=== PATIENT | male | born 1935 | race Caucasian/White ===

== ENCOUNTER 2019-04-25 00:02 | Observation (INO) ==
[2019-04-25 01:10] LABS: Basophils % 0.4 %; Eosinophils # 0.1 K/mcL (0.0-0.6); Eosinophils % 1.4 %; Hemoglobin 13.8 g/dL (12.9-16.9); Immature Granulocytes % 0.3 % (0-4); Lymphocytes # 1.5 K/mcL (0.6-4.6); Lymphocytes % 19.9 %; Mean Corpuscular HGB Conc 33.7 g/dL (31.6-35.5); Mean Corpuscular Hemoglobin 30.4 pg (28.0-33.3); Mean Corpuscular Volume 90.3 fL (83.0-100.0); Mean Platelet Volume 10.8 fL (9.4-12.4); Monocytes # 0.7 K/mcL (0.0-1.3); Monocytes % 10.2 %; Neutrophils # 4.9 K/mcL (1.6-8.9); Platelet Count 160 K/mcL (140-400); Red Blood Count 4.54 M/mcL (4.19-5.50); Red Cell Distribution Width 12.8 % (11.5-14.5); Segmented Neutrophils % 67.8 %; White Blood Count 7.3 K/mcL (4.3-11.1)
[2019-04-25 01:17] LABS: INR 1.5; Prothrombin Time 17.2 Seconds (9.4-12.1)
[2019-04-25 01:20] LABS: Activated Partial Thrombo Time 41.4 Seconds (26.0-36.0)
[2019-04-25 01:21] LABS: BUN/Creatinine Ratio 21 (6-26); Blood Urea Nitrogen 25 mg/dL (8-23); Calcium 9.7 mg/dL (8.6-10.3); Carbon Dioxide 25 mEq/L (23-29); Chloride 108 mEq/L (98-107); Glucose 106 mg/dL (70-105); Osmolality,Calculated 299 (280-300); Potassium 4.1 mEq/L (3.5-5.1); Sodium 142 mEq/L (136-145); eGFR For African Americans > 60 (> 60); eGFR For Non-African Americans 60 (> 60)
[2019-04-25 01:22] LABS: Troponin I < 0.03 ng/mL (< 0.04)
--- NOTE | 2019-04-25 01:59 | Emergency Department Note ---
Disposition Clinical Impression: Hx of CABG, Acute chest pain Coronary artery disease Qualifiers: Coronary Disease-Associated Artery/Lesion type: unspecified vessel or lesion type [place] vs. transplanted heart: [place] heart Associated angina: with unspecified angina Qualified Code(s): I25.119 - Atherosclerotic heart disease of [place] coronary artery with unspecified angina pectoris Disposition: Admitted As Inpatient Condition: Good Time of Disposition: 02:00 Chest Pain HPI - General Chief Complaint: ED Arrhythmia/Palpitations Stated Complaint: chest pain Time Seen by Provider: 04/25/19 00:51 Source: patient Mode of arrival: private vehicle Limitations: no limitations Vital Signs Reviewed: Yes Nursing Notes Reviewed: Yes - History of Present Illness HPI Narrative: 84-year-old male presents emergency department for evaluation of "just not feeling right". Patient states that 2130 was laying down for bed he just did not feel right, he had a feeling in his chest that he is unable to describe, at 2330 he figured he should probably come and be seen as this feeling has continued. Patient states this feeling was that a chest pain or pressure, he states he just "did not feel right". He states through the evening his blood pressure was elevated with a systolic in the 180s and diastolic in the 90s, heart rate in the 40s to 50s. He states normally his heart rate is 50s to 60s and he very rarely has a blood pressure higher than 1:30 systolic. Patient very active. 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 Patient states "I feel fine no, I probably should not have came". No recent illness, fever, chills, shortness of breath, coughing, palpitations or arrhythmias, no edema, no shortness of breath with exertion, no abdominal pain, nausea, vomiting, constipation, diarrhea. History includes PEs, on Xarelto, [place] with stents last 1 2006 Pt complaint: other Onset (ago): hour(s) Time: 21:30 Duration: now resolved Onset: during rest Pain Location: substernal Severity: none Quality: other Worsens with: nothing Context: history of DVT/PE Treatments prior to arrival chest pain: none - Related Data Home Medications Medication Instructions Recorded Confirmed Atorvastatin [Lipitor] 80 mg PO HS 08/24/15 04/25/19 Calcium Carbonate/Vitamin D3 3 each PO DAILY 08/24/15 04/25/19 [Calcium 600 + D Tablet] Lisinopril [Zestril] 20 mg PO DAILY 08/24/15 04/25/19 Pantoprazole Sodium 40 mg PO DAILY 08/24/15 04/25/19 Rivaroxaban [Xarelto] 10 mg PO DAILY 08/24/15 04/25/19 Tamsulosin [Flomax] 0.4 mg PO DAILY 08/24/15 04/25/19 Previous Rx's Medication Instructions Recorded Loratadine [Claritin] 10 mg PO DAILY #30 tablet 03/23/16 Allergies Allergy/AdvReac Type Severity Reaction Status Date / Time esomeprazole [From Nexium] AdvReac Joint Pain Verified 04/25/19 01:04 lactose AdvReac Diarrhea Verified 04/25/19 01:04 quinine AdvReac Muscle Pain Verified 04/25/19 01:04 All systems ED: reviewed and negative except as stated. Review of Systems: As Per HPI Chest Pain PMH - Past Medical History Medical history: Reports: hypertension, myocardial infarction Surgical history: Reports: other Psychiatric history: Reports: no psych history - Social History Smoking Status: Never smoker Alcohol use: Reports: none Drug use: Reports: none Physical Exam - General Limitations: no limitations General appearance: alert, in no apparent distress - Head Head exam: atraumatic, normocephalic, normal inspection - Eye Eye exam: Present: normal appearance - ENT ENT exam: mucous membranes moist - Neck Neck exam: Present: normal inspection, full ROM, trachea midline - Chest Chest inspection: Present: normal inspection, symmetric chest wall rise - Respiratory Respiratory exam: Present: normal lung sounds bilaterally - Cardiovascular Cardiovascular exam: Present: regular rate, normal rhythm, normal heart sounds - Abdominal Exam Abdominal exam: Present: soft, Non-Tender, normal bowel sounds - Neurological Exam Neurological exam: Present: alert, oriented X3 - Psychiatric Psychiatric exam: Present: normal affect, normal mood - Skin Skin exam: Present: warm, dry, intact, normal color Course Course Narrative: Well-developed male in no acute distress. Respirations are easy and even. Patient appears considerably younger than chronological age. He is afebrile, normotensive, non-tachycardic. Physical examination is otherwise unremarkable. EKG completed upon arrival reveals a sinus rhythm with a ventricular rate of 59 beats per minute, CT interval 236 ms, QTC 459 ms. No evidence of ischemic morphology or change from previous that was completed on 03/23/16. Concern for cardiac etiology, I am unconcerned for pulmonary embolus was patient is on xarelto, he is medication compliant, I do not appreciate any other pulmonary etiology. Patient is generally healthy however he does have a cardiac history. Labs returned unremarkable, troponin less than 0.03, chest x-ray is negative. However given age, suspicion, history HEART score is 5. I did not feel patient would benefit from admission to the hospital for ACS rule out given the vague symptomology of just not feeling right in his chest. The entire time is pending the emergency department he has not had any symptoms. He has remained in good spirits. Patient is agreeable to plan of care of inpatient status. - Reevaluation(s) Reevaluation #1: Spoke with hospitalist Dr. Nichols, agree with the patient for inpatient status for ACS rule out. Patient is agreeable to this plan of care still. We will transition at this time. Time: 02:20 Vital Signs Temperature 98.5 F 04/25/19 00:07 Pulse Rate 61 04/25/19 00:07 Respiratory Rate 16 04/25/19 00:07 Blood Pressure 156/75 04/25/19 00:07 O2 Sat by Pulse Oximetry 97 04/25/19 00:07 Temperature 98.5 F 04/25/19 00:07 Pulse Rate 49 04/25/19 02:24 Respiratory Rate 18 04/25/19 02:24 Blood Pressure 151/77 04/25/19 02:24 O2 Sat by Pulse Oximetry 98 04/25/19 02:24 Oxygen Delivery Oxygen Delivery Room Air Chest Pain - Lab Data Result diagrams: 04/25/19 00:13 04/25/19 00:13 Lab Results 04/25/19 04/25/19 04/25/19 Range/Units 00:13 00:13 00:13 WBC 7.3 (4.3-11.1) K/mcL RBC 4.54 (4.19-5.50) M/mcL Hgb 13.8 (12.9-16.9) g/dL Hct 41.0 (37.5-50.1) % MCV 90.3 (83.0-100.0) fL MCH 30.4 (28.0-33.3) pg MCHC 33.7 (31.6-35.5) g/dL RDW 12.8 (11.5-14.5) % Plt Count 160 (140-400) K/mcL MPV 10.8 (9.4-12.4) fL Immature Gran % 0.3 (0-4) % Seg Neutrophils % 67.8 % Lymphocytes % 19.9 % Monocytes % 10.2 % Eosinophils % 1.4 % Basophils % 0.4 % Neutrophils # 4.9 (1.6-8.9) K/mcL Lymphocytes # 1.5 (0.6-4.6) K/mcL Monocytes # 0.7 (0.0-1.3) K/mcL Eosinophils # 0.1 (0.0-0.6) K/mcL Basophils # 0.0 (0.0-0.2) K/mcL PT 17.2 H (9.4-12.1) Seconds INR 1.5 APTT 41.4 H (26.0-36.0) Seconds Sodium 142 (136-145) mEq/L Potassium 4.1 (3.5-5.1) mEq/L Chloride 108 H (98-107) mEq/L Carbon Dioxide 25 (23-29) mEq/L BUN 25 H (8-23) mg/dL Creatinine 1.17 (0.70-1.30) mg/dL Est GFR ( Amer) > 60 (> 60) Est GFR (Non-Af Amer) 60 (> 60) BUN/Creatinine Ratio 21 (6-26) Glucose 106 H (70-105) mg/dL Calculated Osmolality 299 (280-300) Calcium 9.7 (8.6-10.3) mg/dL Troponin I < 0.03 (< 0.04) ng/mL Heart Score - Score History: Moderately Suspicious EKG: Normal Age: Greater than 65 Risk Factors: Equal/Greater than 3 risk factor or history of atherosclerotic disease Troponin: Less than normal limit HEART Score Total: 5 Attestation Statement - Attestation Attestation: Dr. Velazco note: Patient seen in conjunction with LAURA Melendez . Please see her charting for complete documentation. Spent [id number] time with the patient and agree with patient's treatment and disposition. Patient had chest pain last night at rest described parasternal assure was nonradiating lasted a handful minutes and went away. Had vague weakness today during the day and then tonight around 11:30 while in bed after 2 hours had some parasternal chest pain which was again nonradiating. History of known coronary disease with stent placement approximately 10 years ago. No recent stress test or heart catheterization. EKG is unremarkable without injury pattern. Sinus bradycardia noted and was unremarkable. Initial troponin unremarkable.
[2019-04-25] MEDS ORDERED: Aspirin 325 MG TABLET PO ONE (02:05)
[2019-04-25] MEDS ORDERED: Naloxone 0.4 MG/ML INJ IVP PRN (05:53)
--- NOTE | 2019-04-25 06:12 | Internal Med History&Physical ---
Date of Encounter: 04/25/19 Time of Encounter: 05:40 Internal Medicine - H&P: HPI Chief complaint: Chest discomfort Admitted From: Emergency Dept Plans for Post Hospital Care: Home History of present illness: Mr. Oakley is a 84 year old male Patient presented to the ER after he just did not feel good today. He has a home blood pressure cuff, and checked his blood pressure and it was elevated. He says that he is lactose intolerant, and ate 3 cheesy meals in the last 48 hours. He thinks that may have contributed to his symptoms. 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 The sensation that he had did worry him, so he came to the hospital for further evaluation. In the ER patient's initial vital signs were within normal limits. Patient has what appears to be a low resting heart rate, ranging from high 40's to low 60's. CBC was within normal limits BMP was notable only for a slightly elevated glucose of 106. Initial troponin was undetectable INR 1.5. Patient takes xarelto for history of PEs. EKG showed sinus rhythm rate of 59, no ischemic changes. The PA interval was prolonged at 236, which appears to be consistent with previous EKG. QTc was 459. The ER gave the patient 325mg of aspirin, and admitted the patient to the hospital for further observation. Upon my evaluation patient is resting comfortably in the hospital bed in no acute distress. He denies chest pain, abdominal pain, nausea, vomiting, diarrhea and constipation. He states that when he eats dairy food he will sometimes get sensations like this. He feels that he may have "jumped the gun" on coming in to be checked out, but is glad to have his heart evaluated. He is a full code. Past Med Surg Social Fam HX - Past Medical History Medical history: hypertension, myocardial infarction Additional medical history: DVT in Left leg Psychiatric history: no psych history - Past Surgical History Surgical History: coronary bypass (CABG), other Additional surgical history: two heart stents - Social History Smoking Status: Never smoker Smokeless Tobacco Status: No Alcohol use: none Drug use: none - Family History Mother Living Status: Hx Family Cardiac Disorders: No Hx Family Respiratory Disorders: No Father Living Status: Hx Family Cardiac Disorders: No Hx Family Respiratory Disorders: No Internal Medicine - H&P: Meds Atorvastatin [Lipitor] 80 mg PO HS 08/24/15 [History] Calcium Carbonate/Vitamin D3 [Calcium 600 + D Tablet] 3 each PO DAILY 08/24/15 [ History] Lisinopril [Zestril] 20 mg PO DAILY 08/24/15 [History] Pantoprazole Sodium 40 mg PO DAILY 08/24/15 [History] Rivaroxaban [Xarelto] 10 mg PO DAILY 08/24/15 [History] Tamsulosin [Flomax] 0.4 mg PO DAILY 08/24/15 [History] Loratadine [Claritin] 10 mg PO DAILY #30 tablet 03/23/16 [Rx] Allergy/AdvReac Type Severity Reaction Status Date / Time esomeprazole [From Nexium] AdvReac Joint Pain Verified 04/25/19 01:04 lactose AdvReac Diarrhea Verified 04/25/19 01:04 quinine AdvReac Muscle Pain Verified 04/25/19 01:04 All Systems PM: A 10-system review of systems was performed and is negative for pertinent findings except as documented above in the HPI. - Constitutional Vitals: Temp Pulse Resp BP Pulse Ox 98 F 49 14 144/77 98 04/25/19 04:15 04/25/19 04:15 04/25/19 04:15 04/25/19 04:15 04/25/19 04:45 General appearance: Present: cooperative, A&O X 3, pleasant, no acute distress, answers questions appropriately Exam: - - Head Head exam: Present: normal inspection - Eye Eye exam: Present: EOMI, normal appearance - Respiratory Respiratory exam: Present: CTAB. Absent: rales, respiratory distress, rhonchi, wheezes - Cardiovascular Cardiovascular exam: Present: RRR. Absent: diastolic murmur, systolic murmur - GI/Abdominal GI/Abdominal exam: Present: normal bowel sounds, soft. Absent: tenderness - Extremities Exam Extremities exam: Present: warm, radial pulses palpable and symmetrical. Absent: calf tenderness, pedal edema, tenderness - Neurological Exam Neurological exam: Present: no focal deficits, strengths equal and symetr throughout. Absent: motor sensory deficit, facial droop, speech deficit - Skin Skin exam: Present: dry, normal color, warm Internal Med - H&P Results - Labs CBC & Chem 7: 04/25/19 06:17 04/25/19 00:13 Labs: Short CBC 04/25/19 Range/Units 00:13 WBC 7.3 (4.3-11.1) K/mcL Hgb 13.8 (12.9-16.9) g/dL Hct 41.0 (37.5-50.1) % Plt Count 160 (140-400) K/mcL Neutrophils # 4.9 (1.6-8.9) K/mcL BMP 04/25/19 00:13 Sodium 142 Potassium 4.1 Chloride 108 H Carbon Dioxide 25 BUN 25 H Creatinine 1.17 Glucose 106 H Calcium 9.7 Cardiac Enzymes 04/25/19 Range/Units 00:13 Troponin I < 0.03 (< 0.04) ng/mL - Impressions ITS Impressions Chest X-Ray 04/25/19 00:52 IMPRESSION: No acute cardiopulmonary findings. D/ / Hal Mak / Hal Mak Interpreting Provider: Hal Mak - Assessment and Plan (1) Chest discomfort Current Visit: Yes Status: Acute Assessment and plan: Patient states that he does not have chest pain, but did have chest discomfort. This has now resolved. He has no complaints at this time. 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 Follows up with cardiology regularly. Next visit scheduled for 05/04/19. (3) Chronic anticoagulation Current Visit: No Status: Chronic Assessment and plan: Continue home xarelto. Has history of PEs. (4) DVT prophylaxis Current Visit: Yes Status: Acute Assessment and plan: Continue home xarelto - Time Spent With Patient Total time spent is greater than 50% in coordination of care (as documented) at patient's floor/unit and/or counseling patient: Greater than 35 minutes
[2019-04-25 06:28] LABS: Hematocrit 37.5 % (37.5-50.1); Hemoglobin 12.5 g/dL (12.9-16.9); Mean Corpuscular HGB Conc 33.3 g/dL (31.6-35.5); Mean Corpuscular Hemoglobin 30.8 pg (28.0-33.3); Mean Corpuscular Volume 92.4 fL (83.0-100.0); Mean Platelet Volume 10.1 fL (9.4-12.4); Platelet Count 139 K/mcL (140-400); Red Blood Count 4.06 M/mcL (4.19-5.50); Red Cell Distribution Width 12.8 % (11.5-14.5); White Blood Count 5.8 K/mcL (4.3-11.1)
[2019-04-25 06:49] LABS: BUN/Creatinine Ratio 22 (6-26); Blood Urea Nitrogen 24 mg/dL (8-23); Calcium 9.1 mg/dL (8.6-10.3); Carbon Dioxide 28 mEq/L (23-29); Chloride 108 mEq/L (98-107); Glucose 97 mg/dL (70-105); Osmolality,Calculated 300 (280-300); Potassium 4.1 mEq/L (3.5-5.1); Sodium 143 mEq/L (136-145); eGFR For African Americans > 60 (> 60); eGFR For Non-African Americans > 60 (> 60)
[2019-04-25 07:36] VITALS: BP 124/72
[2019-04-25] MEDS ORDERED: *HR* Rivaroxaban 10 MG TABLET PO SCH ×2 (09:00→17:00)
[2019-04-25] MEDS ORDERED: Loratadine 10 MG TABLET PO SCH ×2 (09:15→17:00)
[2019-04-25] MEDS ORDERED: Lisinopril 20 MG TABLET PO SCH ×2 (09:15→17:00)
[2019-04-25] MEDS ORDERED: Regadenoson 0.4 MG/5 ML SYRINGE IVP ONE (10:44)
--- NOTE | 2019-04-25 14:29 | Discharge Summary ---
- NOTES TO OUTPATIENT PROVIDER Notes to Outpatient Provider: f/u with PCP in one week. 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 Orders not resulted at time of discharge: Pending orders 04/25/19 00:52 ECG 12 lead ECG [ECG] Stat 04/25/19 09:02 NM bhavik perf SPECT multi [NM] Routine Date of Encounter: 04/25/19 Time of Encounter: 14:00 - Discharge Diagnosis (1) Chest discomfort Priority: Primary Status: Acute (2) Chronic anticoagulation Priority: Secondary Status: Chronic (3) Hx of CABG Priority: Secondary Status: Chronic (4) DVT prophylaxis Priority: Secondary Status: Acute Hospital course: Mr. Oakley is a 84 year old male with known past medical history of hypertension, hyperlipidemia, CAD s/p CABG and PCI presented to ER with chest pressure intermittently from last couple of days. Patient stated he noticed that his chest discomfort after he had 3 heavy cheesy meals in last 48 hrs. he was admitted in the hospital placed on rheumatology nurse. His serial troponin came back as negative. He denied any more active chest pain /chest discomfort now. Since he is high risk for ACS he did go for nuclear stress test which came back is negative for anemia/infarction. - Time Spent with Patient Total time spent providing and/or coordinating discharge services: - Discharge Medications Prescriptions: New Aspirin Enteric Coated [Aspirin EC] 81 mg PO DAILY #30 tablet.dr Mcintyre Lisinopril [Zestril] 20 mg PO DAILY Atorvastatin [Lipitor] 80 mg PO HS Tamsulosin [Flomax] 0.4 mg PO DAILY Calcium Carbonate/Vitamin D3 [Calcium 600 + D Tablet] 3 each PO DAILY Rivaroxaban [Xarelto] 10 mg PO DAILY Pantoprazole Sodium 40 mg PO DAILY Loratadine [Claritin] 10 mg PO DAILY #30 tablet Home Medications: Atorvastatin [Lipitor] 80 mg PO HS 08/24/15 [History] Calcium Carbonate/Vitamin D3 [Calcium 600 + D Tablet] 3 each PO DAILY 08/24/15 [History] Lisinopril [Zestril] 20 mg PO DAILY 08/24/15 [History] Pantoprazole Sodium 40 mg PO DAILY 08/24/15 [History] Rivaroxaban [Xarelto] 10 mg PO DAILY 08/24/15 [History] Tamsulosin [Flomax] 0.4 mg PO DAILY 08/24/15 [History] Loratadine [Claritin] 10 mg PO DAILY #30 tablet 03/23/16 [Rx] Aspirin Enteric Coated [Aspirin EC] 81 mg PO DAILY #30 tablet. 04/25/19 [Rx] Allergies/Adverse Reactions: Allergy/AdvReac Type Severity Reaction Status Date / Time esomeprazole [From Nexium] AdvReac Joint Pain Verified 04/25/19 01:04 lactose AdvReac Diarrhea Verified 04/25/19 01:04 quinine AdvReac Muscle Pain Verified 04/25/19 01:04 Date of admission: 04/25/19 02:22 Primary care physician: Abena Sanders CNP - Constitutional Vitals: Temp Pulse Resp BP Pulse Ox 97.8 F 51 14 124/72 96 04/25/19 07:35 04/25/19 07:35 04/25/19 07:35 04/25/19 07:35 04/25/19 07:35 General appearance: Present: cooperative, A&O X 3, pleasant, no acute distress, answers questions appropriately Exam: Gen: Alert, awake, Oriented to time,place and person Chest: Diminished breath sounds B/L, No wheezing, No crackles, No rales Heart: S1S2+ RRR No murmurs Abd: Soft, NT, BS +, No organomegaly Ext: No edema, pulses are palpable, No calf tenderness Neuro : No acute focal neuro deficits noticed Skin: No rash. - Patient Status Disposition: Home, Self-Care Condition: Good Overall status at discharge: patient is back to baseline - Discharge Instructions Instructions: Chest Pain (DC), Diet for Ulcers and Gastritis (GEN) Follow Up With: Abena Sanders CNP [Primary Care Provider] - 04/29/19 9:45 am - Diet and Activity Activity: increase activity as tolerated Diet: low salt diet
[2019-04-26] MEDS ORDERED: Cholecalciferol (D-3) 1,000 UNIT TABLET PO SCH (09:00)
--- NOTE | 2019-04-26 13:37 | Electrocardiograph Report ---
[place] [facility] Test Date: 2019-04-25 Pat Name: Sukhdev Oakley Department: [id number] Room: 3B22 Gender: M Physician Representative: : [id number] Requested By: Kaylynn Melendez Order Number: [id number] Reading MD: Javi England Measurements Intervals [employer] Rate: 59 P: -27 WA: 236 QRS: -77 QRSD: 151 T: 56 QT: 463 QTc: 459 Interpretive Statements Sinus rhythm Prolonged WA interval, first deg. AVB RBBB and LAFB Electronically Signed On 04-26-2019 13:36:40 EDT by Javi England
== END 2019-04-25 14:51 | disposition home or self-care (01) ==
LOC: EMEROOARM 00:02 → 3BNU 00:02
PROVIDERS: ADMIT Pediatrics; ATTEND Pediatrics